=== PATIENT | male | born 1950 ===

== ENCOUNTER 2024-02-29 19:22 | Emergency (ER) | payer MEDICARE, OTHER, SELFPAY ==
[2024-02-29 19:27] VITALS: BP 168/88
--- NOTE | 2024-02-29 20:41 | ED.GENMED ---
History of Present Illness
General
Chief Complaint: Musculo-Skeletal Complaint
Source: patient
Exam Limitations: none
Time Seen by Provider: 02/29/24 20:06
History of Present Illness
History of Present Illness:
Patient tripped and fell about a week ago at the [employer] Complaining of ongoing pain near the right distal femur and mild right ankle. Became concerned with area of ecchymosis of his foot today. No chest pain shortness of breath no fever no
other complaints.
Past History
Past History
ED Past Surgical History: Orthopedic
Review of Systems
Review of Systems
All Other Systems: Not applicable
Constitutional: Denies fever
Respiratory: Reports no symptoms
Cardiac: Reports no symptoms
Phy Exam
Physical Exam
Physical Exam:
General: Nontoxic appearing in no distress
Skin: Warm and dry, no rash
Neuro: Alert, nontoxic, grossly nonfocal
Psychiatric: Good eye contact and appropriate
Musculoskeletal: Small area of ecchymosis to the distal medial thigh. Knee is stable. Able to straight leg raise. No laxity. Calf is normal. Achilles is intact. Foot is nontender. Negative fifth metatarsal. Tenderness with mild swelling
diffusely around the ankle. Area of ecchymosis to the foot into the plantar aspect of the foot. However foot is nontender. Good distal pulses
Course
Orders/Labs/Results
Orders:
Orders
02/29/24 20:18
Ankle, Right 3 view CR [CR Ankle - Right Min 3 Views *] Urgent
Comment:
Reason For Exam: trauna
Femur, Right 2 View [CR Femur - Right Min 2 Vw] Urgent
Comment:
Reason For Exam: trauma
Tib/Fib, Right 2 View [CR Leg Tibia/fibula Right 2 Vw] Urgent
Comment:
Reason For Exam: trauma
02/29/24 22:13
Quang Wrap Right-Treatment ONCE
Vital Signs
Initial and Last Documented VS:
Initial Vital Signs
Pulse Resp BP Pulse Ox
56 14 168/88 98
02/29/24 19:27 02/29/24 19:27 02/29/24 19:27 02/29/24 19:27
Last Documented Vital Signs
Pulse Resp BP Pulse Ox
56 14 168/88 98
02/29/24 19:27 02/29/24 19:27 02/29/24 19:27 02/29/24 19:27
MDM/Problems Addressed
Differential Diagnosis Includes:
Possible avulsion tenderness in nature posterior knee. Ecchymosis tracking down the leg. No acute Achilles rupture. Nothing to suspect DVT. Quang wrap and orthopedic follow-up
*Radiology
Radiology exam reviewed: preliminary read by ED provider (Chip posterior knee. Possible avulsion)
*Pulse Oximetry
Patient hypoxic: no
*Critical Care Note
Total Time (30-74mins, 75-104mins- exclusive of procedures): Not Applicable
ED Attending Note
-
Portions of this chart may have been created with voice recognition software.� Occasional wrong word or��sound alike� substitutions may have occurred due to the inherent limitations of voice recognition software.
Discharge Plan
Departure
Patient Disposition: Home (Routine Discharge)
Date of Disposition: 02/29/24
Time of Disposition: 22:11
Patient with high blood pressure during this ER visit?: Yes
Discharge Problem:
Suspect tendinous avulsion right leg
Referrals:
Jeff Kunz MD [Active] - Follow up in 2-3 days
Katt Ann DO [Family Provider] -
Activity Restrictions/Additional Instructions:
Call the orthopedist tomorrow for close follow-up this week
Quang wrap for comfort
Rest the leg
Return sooner with increased pain redness swelling or any other concerning symptoms
Interventions
Interventions:
*Risk Screen - Suicide Last Done: 02/29/24 19:27
*General Assessment Last Done: 02/29/24 19:27
*Neglect/Abuse Screening Last Done: 02/29/24 19:27
ED-Musculoskeletal Assessment Last Done: 02/29/24 20:41
Discharge Date and Time
Print Language: AUSTRAL[place]
[2024-02-29 22:30] VITALS: BP 186/96
== END 2024-02-29 22:31 | disposition home or self-care (01) ==
LOC: EMR 19:22
PROVIDERS: EMERGENCY PHYSICIAN Emergency Medicine; FAMILY PHYSICIAN Family Medicine
DX: S70.11XA Contusion of right thigh, initial encounter (principal); S90.31XA Contusion of right foot, initial encounter; W01.0XXA Fall on same level from slipping, tripping and stumbling without subsequent striking against object, initial encounter
CPT/HCPCS: 99283; 73552; 73590; 73610